=== PATIENT | female | born 1960 | race Caucasian/White ===

== ENCOUNTER 2017-03-21 08:34 | Emergency (ER) | payer OTHER ==
[~2017-03-21] VITALS: Ht 170.2 cm; Wt 111.7 kg
[2017-03-21] MEDS ORDERED: SODIUM CHLORIDE 0.9% 1,000 ML IV ONE (09:13)
[2017-03-21] MEDS ORDERED: ONDANSETRON 2MG/ML, 2ML ONE (09:26)
[2017-03-21] MEDS ORDERED: HYDROmorphone 1 MG/ML, 1ML ONE (09:26)
[2017-03-21] MEDS ORDERED: ONDANSETRON 2MG/ML, 2ML IVPush ONE (09:30)
[2017-03-21] MEDS ORDERED: SODIUM CHLORIDE FLUSH 10ML SYR IVF ONE (09:30)
[2017-03-21] MEDS ORDERED: HYDROmorphone 1 MG/ML, 1ML IVPush PRN (09:30)
[2017-03-21 09:55] LABS: HEMATOCRIT 43.5 % (34.6-47.8); HEMOGLOBIN 14.6 g/dL (11.7-16.4); WHITE BLOOD COUNT 6.6 x10^3/uL (3.4-10)
[2017-03-21] MEDS ORDERED: CLON0.25 PO (10:07)
[2017-03-21] MEDS ORDERED: VITA1TAB71 PO (10:07)
[2017-03-21] MEDS ORDERED: LISI1TAB3 PO (10:07)
[2017-03-21] MEDS ORDERED: LEVO50TA PO (10:07)
[2017-03-21 10:09] LABS: ASPARTATE AMINO TRANSFERASE 20 U/L (15-37); BLOOD UREA NITROGEN 12 mg/dL (7-18)
[2017-03-21 10:21] LABS: PATH.CAST-FLAG NOT PRESENT; SPERM-FLAG NOT PRESENT; SRC-FLAG NOT PRESENT; XTAL-FLAG NOT PRESENT; YLC-FLAG NOT PRESENT
[2017-03-21] MEDS ORDERED: OMNIPAQUE 350 MG/ML, 100ML BOTTLE ONE (10:46)
[2017-03-21 11:01] VITALS: BP 110/64
== END 2017-03-21 13:37 | disposition home or self-care (01) ==
LOC: ED 09:27
DX: N30.90 Cystitis, unspecified without hematuria (principal)
CPT/HCPCS: 36415; 74177; 80053; 81001; 83690; 85025; 87086; 96361; 96374; 96375; 99285; J1170; J2405; J7030; Q9967

== ENCOUNTER → 2018-10-02 | Outpatient (CLI) | payer OTHER ==
[~2018-10-02] MED LIST: CLON0.25 PO; LEVO50TA PO; LISI1TAB3 PO; VITA1TAB71 PO
== END | disposition home or self-care (01) ==
LOC: CFH 13:04
PROVIDERS: ATTEND Nurse Practitioner Women's Health
DX: Z12.31 Encounter for screening mammogram for malignant neoplasm of breast (principal); Z88.0 Allergy status to penicillin; Z88.8 Allergy status to other drugs, medicaments and biological substances
CPT/HCPCS: 77063; 77067

== ENCOUNTER 2018-11-18 08:35 | Inpatient (IN) | payer OTHER ==
[~2018-11-18] VITALS: Ht 167.6 cm; Wt 107.8 kg
--- NOTE | 2018-11-18 08:57 | NUR ---
ONLINE FACILITATOR: PT TO ROOM FROM [facility], AMBULATORY WITH STEADY GAIT
[2018-11-18] MEDS ORDERED: ACETAMINOPHEN 500 MG TABLET PO ONE (09:00)
[2018-11-18] MEDS ORDERED: SODIUM CHLORIDE 0.9% 1,000ML IVBOLUS ONE (09:00)
[2018-11-18] MEDS ORDERED: SODIUM CHLORIDE FLUSH 10ML SYR IVF ONE (09:00)
[2018-11-18] MEDS ORDERED: ONDANSETRON 2MG/ML, 2ML IVPush ONE ×2 (09:00→09:30)
--- NOTE | 2018-11-18 09:06 | NUR ---
PT TAKEN TO XRAY AT THIS TIME.
[2018-11-18] MEDS ORDERED: ONDANSETRON 2MG/ML, 2ML ONE (09:13)
[2018-11-18] MEDS ORDERED: ACETAMINOPHEN 500 MG TABLET ONE ×2 (09:13→09:41)
[2018-11-18] MEDS ORDERED: ASPI-496 PO (09:40)
[2018-11-18] MEDS ORDERED: METO200T47 PO (09:40)
[2018-11-18] MEDS ORDERED: LIOT5TAB3 PO (09:40)
[2018-11-18] MEDS ORDERED: ATOR40TA78 PO (09:40)
[2018-11-18 09:53] LABS: ALANINE AMINOTRANSFERASE 33 U/L (12-78); ALBUMIN 3.4 g/dL (3.4-5.0); ANION GAP 6 mmol/L (5-15); CHLORIDE 101 mmol/L (98-107); CREATININE 0.82 mg/dL (0.55-1.02)
--- NOTE | 2018-11-18 09:54 | NUR ---
PT MEDICATED PER EMAR. RESTING IN BED.
[2018-11-18 09:56] LABS: ALKALINE PHOSPHATASE 90 U/L (45-117); BASOPHILS # (AUTO) 0.01 x10^3/uL (0-0.1); BASOPHILS % (AUTO) 0 % (0-1); BILIRUBIN,TOTAL 1.1 mg/dL (0.2-1.0); EOSINOPHILS # (AUTO) 0.03 x10^3/uL (0-0.4); EOSINOPHILS % (AUTO) 0 % (1-7); LYMPHOCYTES # (AUTO) 0.75 x10^3/uL (1-3.4); LYMPHOCYTES % (AUTO) 9 % (22-44); MD NO; MEAN CORPUSCULAR HEMOGLOBIN 31.3 pg (27.0-34.8); MEAN CORPUSCULAR VOLUME 94.9 fL (80-100); MEAN PLATELET VOLUME 7.9 fL (7.4-10.4); MONOCYTES # (AUTO) 0.65 x10^3/uL (0.2-0.8); MONOCYTES % (AUTO) 8 % (2-9); NEUTROPHILS # (AUTO) 6.87 x10^3/uL (1.8-6.8); NEUTROPHILS % (AUTO) 83 % (42-75); PLATELET COUNT 206 x10^3/uL (130-400); RED BLOOD COUNT 4.26 x10^6/uL (3.82-5.3); RED CELL DISTRIBUTION WIDTH 13.6 % (9.6-15.2); TOTAL PROTEIN 7.9 g/dL (6.4-8.2)
[2018-11-18] MEDS ORDERED: CEFTRIAXONE PMX 1GM/50ML 50 ML ONE (09:59)
[2018-11-18] MEDS ORDERED: CEFTRIAXONE PMX 1GM/50ML 50 ML IV ONE (10:00)
[2018-11-18] MEDS ORDERED: HYDROcodone/APAP 5/325 TABLET PO ONE (10:00)
[2018-11-18] MEDS ORDERED: AZITHROMYCIN 500 MG in SODIUM CHLORIDE 0.9% 250 ML IV ONE (10:00)
[2018-11-18] MEDS ORDERED: HYDROcodone/APAP 5/325 TABLET ONE (10:09)
--- NOTE | 2018-11-18 10:58 | NUR ---
PT AMBULATED TO BATHROOM, STEADY GAIT. VOIDED. URINE COLLECTED.
[2018-11-18 11:09] LABS: MICROSCOPIC AUTO
[2018-11-18 11:15] LABS: CULTURE INDICATED? YES
[2018-11-18] MEDS ORDERED: KETOROLAC 30 MG/1 ML IVPush ONE (12:00)
[2018-11-18] MEDS ORDERED: ALBUTEROL/IPRATROPIUM 2.5MG/0.5MG, 3 ML NPPB SCH (12:00)
[2018-11-18] MEDS ORDERED: KETOROLAC 30 MG/1 ML ONE (12:01)
[2018-11-18] MEDS ORDERED: ALBUTEROL/IPRATROPIUM 2.5MG/0.5MG, 3 ML ONE (12:02)
--- NOTE | 2018-11-18 12:06 | NUR ---
PATIENT AMBULATED WITH SPO2 MONITOR, PATIETN MAINTAINED 90% O2. PLAN TO GIVEN BREATHING TREATMENT AND TORADOL
--- NOTE | 2018-11-18 12:07 | NUR ---
RT AT BS FOR BREATHING TX
--- NOTE | 2018-11-18 13:13 | NUR ---
PT AMBULATED APPROXIMATELY 100 FT AT THIS TIME. PT'S RA SAT AT THIS TIME WAS BETWEEN 86-89%.
--- NOTE | 2018-11-18 13:50 | NUR ---
SPOKE WITH PROVIDER ABOUT ADMISSION STATUS. PATIENT UPDATED.
[2018-11-18] MEDS ORDERED: CITA20TA6 PO (13:58)
[2018-11-18] MEDS ORDERED: METF500T27 PO (13:58)
--- NOTE | 2018-11-18 15:08 | NUR ---
REPORT GIVEN TO YARA MENDIOLA.
[2018-11-18 15:51] VITALS: BP 116/66
[2018-11-18] MEDS ORDERED: BISACODYL 10 MG SUPP PR PRN (16:00)
[2018-11-18] MEDS ORDERED: ENALAPRILAT 1.25 MG/ML, 2ML IVPush PRN (16:00)
[2018-11-18] MEDS ORDERED: DOCUSATE 100 MG CAPSULE PO PRN (16:00)
[2018-11-18] MEDS ORDERED: hydrALAzine 20 MG/ML, 1ML IVPush PRN (16:00)
[2018-11-18] MEDS ORDERED: POLYETHYLENE GLYCOL 17 GM PACKET PO PRN (16:00)
[2018-11-18] MEDS ORDERED: ACETAMINOPHEN 325 MG TABLET PO PRN (16:00)
[2018-11-18] MEDS ORDERED: LABETALOL 5MG/ML, 20ML IVPush PRN (16:00)
[2018-11-18] MEDS ORDERED: PROCHLORPERAZINE 5 MG TABLET PO PRN (17:30)
[2018-11-18 17:32] LABS: TROPONIN I < 0.015 ng/mL (0.000-0.045)
[2018-11-18] MEDS: DOXYCYCLINE 100 MG in DEXTROSE 5% 250 ML IV SCH (17:44)
[2018-11-18] MEDS: SODIUM CHLORIDE 0.9% 1,000 ML IV SCH (17:47)
[2018-11-18] MEDS: INSULIN LISPRO 100 UNITS/ML, PEN SQ-INSULIN SCH ×2 (17:51→20:30)
[2018-11-18 18:01] LABS: HEMOGLOBIN A1C 5.7 % (4.2-6.3)
[2018-11-18 19:12] VITALS: BP 119/77
[2018-11-18] MEDS: ATORVASTATIN 40 MG TABLET PO SCH (20:54)
[2018-11-18 22:55] LABS: TROPONIN I < 0.015 ng/mL (0.000-0.045)
[2018-11-18] MEDS: GUAIFENESIN/DM 200-20MG, 10ML UDC PO PRN (23:00)
[2018-11-19] MEDS: SODIUM CHLORIDE 0.9% 1,000 ML IV SCH ×3 (00:49→17:46)
[2018-11-19 01:01] VITALS: BP 106/69
[2018-11-19 05:24] LABS: BASOPHILS # (AUTO) 0.02 x10^3/uL (0-0.1); BASOPHILS % (AUTO) 0 % (0-1); EOSINOPHILS # (AUTO) 0.14 x10^3/uL (0-0.4); EOSINOPHILS % (AUTO) 3 % (1-7); LYMPHOCYTES % (AUTO) 18 % (22-44); MD NO; MEAN CORPUSCULAR HEMOGLOBIN 31.2 pg (27.0-34.8); MEAN CORPUSCULAR VOLUME 94.5 fL (80-100); MEAN PLATELET VOLUME 7.8 fL (7.4-10.4); MONOCYTES # (AUTO) 0.61 x10^3/uL (0.2-0.8); MONOCYTES % (AUTO) 11 % (2-9); NEUTROPHILS # (AUTO) 3.67 x10^3/uL (1.8-6.8); NEUTROPHILS % (AUTO) 68 % (42-75); PLATELET COUNT 159 x10^3/uL (130-400); RED BLOOD COUNT 3.77 x10^6/uL (3.82-5.3); RED CELL DISTRIBUTION WIDTH 13.9 % (9.6-15.2)
[2018-11-19 05:29] LABS: CHLORIDE 108 mmol/L (98-107)
[2018-11-19 05:37] LABS: ALANINE AMINOTRANSFERASE 31 U/L (12-78); ALBUMIN 2.8 g/dL (3.4-5.0); ALKALINE PHOSPHATASE 72 U/L (45-117); ANION GAP 3 mmol/L (5-15); BILIRUBIN,TOTAL 0.7 mg/dL (0.2-1.0); CALCIUM 8.2 mg/dL (8.5-10.1); CHOLESTEROL, TOTAL 100 mg/dL (140-239); CREATININE 0.66 mg/dL (0.55-1.02); HDL CHOL % 50 % (28-40); HDL CHOLESTEROL (DIRECT) 50 mg/dL (40-60); LDL CHOLESTEROL,CALCULATED 39 mg/dL (54-169); LDL/HDL RATIO 0.8 (0.5-3.0); TOTAL PROTEIN 6.3 g/dL (6.4-8.2); TRIGLYCERIDES 54 mg/dL (50-200); VLDL CHOLESTEROL 11 mg/dL (0-25)
[2018-11-19] MEDS: DOXYCYCLINE 100 MG in DEXTROSE 5% 250 ML IV SCH (05:41)
[2018-11-19] MEDS: LEVOTHYROXINE 137 MCG TABLET PO SCH (05:41)
[2018-11-19 06:43] LABS: RAPID INFLUENZA A Negative (Negative); RAPID INFLUENZA B Negative (Negative)
[2018-11-19 06:45] VITALS: BP 111/76
[2018-11-19] MEDS: INSULIN LISPRO 100 UNITS/ML, PEN SQ-INSULIN SCH ×3 (07:00→16:00)
[2018-11-19] MEDS: GUAIFENESIN/DM 200-20MG, 10ML UDC PO PRN (09:00)
[2018-11-19] MEDS ORDERED: HYDROCHLOROTHIAZIDE 12.5 MG CAPSULE PO SCH (09:00)
[2018-11-19] MEDS ORDERED: METOPROLOL SUCCINATE 100 MG TAB.ER.24H PO SCH (09:00)
[2018-11-19] MEDS ORDERED: LISINOPRIL 10 MG TABLET PO SCH (09:00)
[2018-11-19] MEDS: CITALOPRAM 20 MG TABLET PO SCH (09:01)
[2018-11-19] MEDS: LIOTHYRONINE 5 MCG TABLET PO SCH (09:01)
[2018-11-19] MEDS: METOPROLOL SUCCINATE 100 MG TAB.ER.24H PO SCH (09:01)
[2018-11-19] MEDS: ASPIRIN 81 MG TABLET EC PO SCH (09:01)
[2018-11-19] MEDS ORDERED: GUAIFENESIN 200 MG TABLET PO SCH (09:30)
[2018-11-19] MEDS: CEFTRIAXONE PMX 1GM/50ML 50 ML IV SCH (10:13)
[2018-11-19] MEDS: BENZONATATE 100 MG CAPSULE PO SCH ×3 (11:51→19:54)
[2018-11-19 12:15] VITALS: BP 124/81
[2018-11-19 18:40] VITALS: BP 134/82
[2018-11-19] MEDS: ATORVASTATIN 40 MG TABLET PO SCH (19:55)
[2018-11-19] MEDS: DOXYCYCLINE 100MG TABLET PO SCH (19:55)
[2018-11-20] MEDS: SODIUM CHLORIDE 0.9% 1,000 ML IV SCH ×3 (00:36→21:00)
[2018-11-20 03:20] VITALS: BP 117/75
[2018-11-20 05:34] LABS: BASOPHILS # (AUTO) 0.03 x10^3/uL (0-0.1); BASOPHILS % (AUTO) 1 % (0-1); EOSINOPHILS % (AUTO) 4 % (1-7); LYMPHOCYTES # (AUTO) 1.45 x10^3/uL (1-3.4); LYMPHOCYTES % (AUTO) 29 % (22-44); MD NO; MEAN CORPUSCULAR HEMOGLOBIN 30.5 pg (27.0-34.8); MEAN CORPUSCULAR HGB CONC 32.4 g/dL (32.4-35.8); MEAN CORPUSCULAR VOLUME 94.2 fL (80-100); MEAN PLATELET VOLUME 7.5 fL (7.4-10.4); MONOCYTES # (AUTO) 0.59 x10^3/uL (0.2-0.8); MONOCYTES % (AUTO) 12 % (2-9); NEUTROPHILS # (AUTO) 2.68 x10^3/uL (1.8-6.8); NEUTROPHILS % (AUTO) 54 % (42-75); PLATELET COUNT 167 x10^3/uL (130-400); RED BLOOD COUNT 3.69 x10^6/uL (3.82-5.3); RED CELL DISTRIBUTION WIDTH 13.5 % (9.6-15.2)
[2018-11-20 05:38] LABS: ALBUMIN 2.7 g/dL (3.4-5.0); ANION GAP 8 mmol/L (5-15); CALCIUM 8.1 mg/dL (8.5-10.1); CHLORIDE 109 mmol/L (98-107); CREATININE 0.55 mg/dL (0.55-1.02)
[2018-11-20] MEDS: LEVOTHYROXINE 137 MCG TABLET PO SCH (05:53)
[2018-11-20 07:14] VITALS: BP 111/75
[2018-11-20] MEDS: BENZONATATE 100 MG CAPSULE PO SCH ×3 (08:23→21:14)
[2018-11-20] MEDS: CITALOPRAM 20 MG TABLET PO SCH (08:23)
[2018-11-20] MEDS: ASPIRIN 81 MG TABLET EC PO SCH (08:23)
[2018-11-20] MEDS: LIOTHYRONINE 5 MCG TABLET PO SCH (08:23)
[2018-11-20] MEDS: METOPROLOL SUCCINATE 100 MG TAB.ER.24H PO SCH (08:24)
[2018-11-20] MEDS: DOXYCYCLINE 100MG TABLET PO SCH ×2 (08:24→21:15)
[2018-11-20] MEDS: CEFTRIAXONE PMX 1GM/50ML 50 ML IV SCH (10:38)
[2018-11-20 14:00] VITALS: BP 121/79
[2018-11-20] MEDS ORDERED: POTASSIUM CHLORIDE 20 MEQ TAB.ER.PRT PO ONE (19:00)
[2018-11-20 20:10] VITALS: BP 126/62
[2018-11-20] MEDS: ATORVASTATIN 40 MG TABLET PO SCH (21:13)
[2018-11-20] MEDS: GUAIFENESIN 200 MG TABLET PO SCH (21:15)
[2018-11-21 02:57] VITALS: BP 118/76
[2018-11-21] MEDS: SODIUM CHLORIDE 0.9% 1,000 ML IV SCH ×2 (05:00→13:00)
[2018-11-21] MEDS: LEVOTHYROXINE 137 MCG TABLET PO SCH (05:38)
[2018-11-21 06:00] LABS: CHLORIDE 111 mmol/L (98-107)
[2018-11-21 06:05] LABS: ANION GAP 5 mmol/L (5-15); CALCIUM 8.3 mg/dL (8.5-10.1); CREATININE 0.58 mg/dL (0.55-1.02)
[2018-11-21 06:47] VITALS: BP 120/72
[2018-11-21] MEDS: CITALOPRAM 20 MG TABLET PO SCH (09:18)
[2018-11-21] MEDS: BENZONATATE 100 MG CAPSULE PO SCH (09:18)
[2018-11-21] MEDS: DOXYCYCLINE 100MG TABLET PO SCH (09:18)
[2018-11-21] MEDS: ASPIRIN 81 MG TABLET EC PO SCH (09:18)
[2018-11-21] MEDS: GUAIFENESIN 200 MG TABLET PO SCH (09:18)
[2018-11-21] MEDS: METOPROLOL SUCCINATE 100 MG TAB.ER.24H PO SCH (09:19)
[2018-11-21] MEDS: LIOTHYRONINE 5 MCG TABLET PO SCH (09:19)
[2018-11-21] MEDS: CEFTRIAXONE PMX 1GM/50ML 50 ML IV SCH (10:00)
[2018-11-21] MEDS ORDERED: AZITHROMYCIN 500 MG TABLET PO SCH (12:30)
[2018-11-21] MEDS ORDERED: GUAI200T3 PO (12:36)
[2018-11-21] MEDS ORDERED: AZIT500T PO (12:36)
[2018-11-21 15:14] VITALS: BP 125/79
[2018-11-21] MEDS ORDERED: CEFDINIR 300 MG CAPSULE PO SCH (21:00)
== END 2018-11-21 16:27 | disposition home or self-care (01) | DRG 193 ==
LOC: ED 10:00 → EDIP 15:05 → 3NE 15:34 → DCLOUNGE 11-21 16:17
PROVIDERS: ADMIT Internal Medicine; ATTEND Internal Medicine
DX: J15.9 Unspecified bacterial pneumonia (principal); J96.01 Acute respiratory failure with hypoxia; E06.3 Autoimmune thyroiditis; E11.9 Type 2 diabetes mellitus without complications; E78.5 Hyperlipidemia, unspecified; E87.6 Hypokalemia; I10 Essential (primary) hypertension; K57.90 Diverticulosis of intestine, part unspecified, without perforation or abscess without bleeding; Z80.7 Family history of other malignant neoplasms of lymphoid, hematopoietic and related tissues; Z88.0 Allergy status to penicillin; Z88.8 Allergy status to other drugs, medicaments and biological substances
CPT/HCPCS: 36415; 84145; 87400; J7620; 71046; 80048; 80053; 80061; 81001; 82040; 82962; 83036; 83605; 83735; 84443; 84484; 85025; 87040; 87070; 87086; 87205; 93005; 94640; G0378; J0456; J0696; J1885; J2405; J7060; J1815; J7030; J7050

== ENCOUNTER → 2020-01-27 | Outpatient (CLI) | payer OTHER ==
[~2020-01-27] MED LIST changes: +ASPI-496 PO; +ATOR40TA78 PO; +AZIT500T PO; +CITA20TA6 PO; +GUAI200T37 PO; +LIOT5TAB11 PO; +LISI1TAB23 PO; -LISI1TAB3 PO; +METF500T27 PO; +METO200T47 PO
== END | disposition home or self-care (01) ==
LOC: CFH 14:30 → EDSTATUS 15:00
PROVIDERS: ATTEND Nurse Practitioner Women's Health
DX: Z12.31 Encounter for screening mammogram for malignant neoplasm of breast (principal)
CPT/HCPCS: 77063; 77067